=== PATIENT | male | born 1945 | race Caucasian/White ===

== ENCOUNTER 2018-05-21 05:50 | Emergency (ER) | payer MEDICARE, OTHER ==
[2018-05-21] MEDS ORDERED: Zofran 4 MG/2 ML VIAL IV ONE (06:05)
[2018-05-21] MEDS ORDERED: Sodium Chloride 0.9% 1000 ML 1,000 ML IV STA (06:05)
[2018-05-21] MEDS ORDERED: PROTONIX 40 MG IV IV ONE ×2 (06:05→06:27)
[2018-05-21] MEDS ORDERED: Pepcid 20 MG VIAL IV ONE ×2 (06:05→06:28)
[2018-05-21] MEDS ORDERED: BENADRYL 50 MG/ML IV ONE (06:05)
[2018-05-21] MEDS ORDERED: Sodium Chloride 0.9% 1000 ML 1,000 ML IV SCH (06:15)
--- NOTE | 2018-05-21 06:23 | ERPHSYRPT ---
- History of Present Illness Time Seen by Provider: 05/21/18 06:20 Historian: patient, family Exam Limitations: no limitations Patient Subjective Stated Complaint: per ems and pt's , pt has vomited up dark black for approx 1-2 hours. states pt has been feeling bad for last 3 weeks and has been increasingly tired recently Triage Nursing Assessment: pt alert and oriented. answers questions- slow to answer at times- states pt has poor memory and this is his normal. pt arrive per ambulance. [facility]. respirations nonlabored with lungs cta. abd soft and nontender wtih hyper bowel sounds. emesis dark black. none since arrival to er. Physician History: pt has vomited up dark black for approx 1-2 hours. states pt has been feeling bad for last 3 weeks and has been increasingly tired recently Timing/Duration: today Activities at Onset: none Quality: tightness Abdominal Pain Onset Location: epigastric Pain Radiation: no radiation Severity of Pain-Max: mild Severity of Pain-Current: mild Modifying Factors: Improves With: nothing Associated Symptoms: loss of appetite, nausea, vomiting (blood) Previous symptoms: different symptoms Allergies/Adverse Reactions: NSAIDS (Non-Steroidal Anti-Inflamma Allergy (Verified 05/21/18 06:15) Anaphylactic Reaction galantamine Adverse Reaction (Verified 05/21/18 06:15) Nausea Home Medications: Clonazepam 0.5 mg [Klonopin 0.5 MG] 0.5 mg PO BIDPRN PRN 05/21/18 [History ] Clopidogrel Bisulfate 75 mg [PLAVIX 75 MG Tablet] 75 mg PO BID 05/21/18 [ History] Donepezil HCl 10 mg [Aricept 10 MG] 10 mg PO DAILY 05/21/18 [History] Duloxetine HCl [Cymbalta] 60 mg PO DAILY 05/21/18 [History] Hydrocodone/APAP 10/325 mg [[place] 10/325 MG Tablet] 1 tab PO Q4H PRN PRN 05/21/18 [History] Isosorbide Mononitrate [Isosorbide Mononitrate ER] 120 mg PO DAILY 05/21/18 [ History] Memantine HCl 10 mg PO BID 05/21/18 [History] Metoclopramide HCl 5 mg [Reglan 5 MG] 5 mg PO ACHS 05/21/18 [History] Omeprazole 20 MG [Prilosec 20 mg] 20 mg PO BID 05/21/18 [History] PANTOPRAZOLE 40 mg Tablet [Protonix 40MG Tablet] 40 mg PO QAM 05/21/18 [ History] Quetiapine Fumarate 25 mg [Seroquel 25 MG] 25 mg PO BID 05/21/18 [History] Ranitidine HCl 300 mg PO HS 05/21/18 [History] Ranolazine 500 MG [Ranexa 500 MG] 500 mg PO BID 05/21/18 [History] Rosuvastatin Calcium [Crestor] 5 mg PO DAILY 05/21/18 [History] Hx Tetanus, Diphtheria Vaccination/Date Given: Yes Hx Influenza Vaccination/Date Given: No Hx Pneumococcal Vaccination/Date Given: No Immunizations Up to Date: Yes - Review of Systems Constitutional: Fatigue, Lethargy, Weakness, No Fever, No Chills Eyes: No Symptoms Ears, Nose, & Throat: No Symptoms Respiratory: No Cough, No Dyspnea Cardiac: Chest Pain, No Edema, No Syncope Abdominal/Gastrointestinal: Abdominal Pain, Nausea, Hematemesis, No Vomiting, No Diarrhea Genitourinary Symptoms: No Dysuria Musculoskeletal: No Back Pain, No Neck Pain Skin: No Rash Neurological: No Dizziness, No Focal Weakness, No Sensory Changes Psychological: No Symptoms Endocrine: No Symptoms All Other Systems: Reviewed and Negative - Past Medical History Neurological History: Dementia ENT History: No Pertinent History Cardiac History: Coronary Artery Disease Respiratory History: No Pertinent History Endocrine Medical History: No Pertinent History Musculoskeletal History: Arthritis GI Medical History: Esophageal Disorder, GERD - Past Surgical History Past Surgical History: Yes Cardiac: CABG Gastrointestinal: Appendectomy, Cholecystectomy Musculoskeletal: Orthopedic Surgery - Social History Smoking Status: Never smoker Exposure to second hand smoke: No Drug Use: none Patient Lives Alone: No - Nursing Vital Signs Nursing Vital Signs: Initial Vital Signs Temperature 99.8 F 05/21/18 05:56 Pulse Rate 93 H 05/21/18 05:56 Respiratory Rate 18 05/21/18 05:56 Blood Pressure 151/88 05/21/18 05:56 O2 Sat by Pulse Oximetry 96 05/21/18 05:56 Pain Scale Pain Intensity 0 - Physical Exam General Appearance: no apparent distress, alert Eye Exam: PERRL/EOMI, eyes nml inspection, pale conjunctivae Ears, Nose, Throat Exam: normal ENT inspection, pharynx normal, moist mucous membranes Neck Exam: normal inspection, non-tender, supple, full range of motion Respiratory Exam: normal breath sounds, lungs clear, No respiratory distress Cardiovascular Exam: regular rate/rhythm, normal heart sounds Gastrointestinal/Abdomen Exam: soft, No tenderness, No mass Back Exam: normal inspection, normal range of motion, No CVA tenderness, No vertebral tenderness Extremity Exam: normal inspection, normal range of motion, pelvis stable Neurologic Exam: alert, oriented x 3, cooperative, sensation nml, No motor deficits Skin Exam: normal color, warm, dry, pale Lymphatic Exam: No adenopathy SpO2 Interpretation: normal SpO2: 96 Oxygen Delivery: Room Air - Course Nursing assessment & vital signs reviewed: Yes EKG Interpreted by Me: Sinus Rhythm - Radiology Exams Chest X-ray Interpretation: Reviewed by me, Negative Ordered Tests: Active Orders 24 hr Category Date Time Status EKG-ER Only STAT Care 05/21/18 06:05 Active IV Insertion STAT Care 05/21/18 06:05 Active CHEST 1 VIEW (PORTABLE) Stat Exams 05/21/18 06:06 Taken CBC W DIFF Stat Lab 05/21/18 06:20 Completed CMP Stat Lab 05/21/18 06:20 Completed PROTIME WITH INR Stat Lab 05/21/18 06:20 Received TROPONIN Q3H Lab 05/21/18 06:20 Received TROPONIN Q3H Lab 05/21/18 09:15 Ordered TROPONIN Q3H Lab 05/21/18 12:15 Ordered TROPONIN Q3H Lab 05/21/18 15:15 Ordered TROPONIN Q3H Lab 05/21/18 18:15 Ordered Medication Summary Generic Name Dose Route Start Last Admin Trade Name Freq PRN Reason Stop Dose Admin Sodium Chloride 1,000 mls @ 999 mls/hr 05/21/18 06:05 05/21/18 06:40 Sodium Chloride 0.9% 1000 Ml IV 05/21/18 07:05 999 mls/hr .Q1H1M STA Administration Sodium Chloride 1,000 mls @ 100 mls/hr 05/21/18 06:15 Sodium Chloride 0.9% 1000 Ml IV 06/20/18 06:14 .Q10H POLI Discontinued Medications Generic Name Dose Route Start Last Admin Trade Name Fernando PRN Reason Stop Dose Admin Diphenhydramine HCl 25 mg 05/21/18 06:05 05/21/18 06:41 Benadryl 50 Mg/Ml IV 05/21/18 06:06 25 mg STAT ONE Administration Diphenhydramine HCl Confirm 05/21/18 06:27 Benadryl 50 Mg/Ml Administered 05/21/18 06:28 Dose 50 mg .ROUTE .STK-MED ONE Famotidine 20 mg 05/21/18 06:05 05/21/18 06:42 Pepcid 20 Mg Vial IV 05/21/18 06:06 20 mg STAT ONE Administration Famotidine Confirm 05/21/18 06:28 Pepcid 20 Mg Vial Administered 05/21/18 06:29 Dose 20 mg IV .STK-MED ONE Ondansetron HCl 4 mg 05/21/18 06:05 05/21/18 06:42 Zofran 4 Mg/2 Ml Vial IV 05/21/18 06:06 4 mg STAT ONE Administration Ondansetron HCl Confirm 05/21/18 06:27 Zofran 4 Mg/2 Ml Vial Administered 05/21/18 06:28 Dose 4 mg .ROUTE .STK-MED ONE Pantoprazole Sodium 40 mg 05/21/18 06:05 05/21/18 06:41 Protonix 40 Mg Iv IV 05/21/18 06:06 40 mg STAT ONE Administration Pantoprazole Sodium Confirm 05/21/18 06:27 Protonix 40 Mg Iv Administered 05/21/18 06:28 Dose 40 mg IV .STK-MED ONE Lab/Rad Data: Laboratory Result Diagrams 05/21/18 06:20 05/21/18 06:20 Laboratory Results 05/21/18 05/21/18 Range/Units 06:20 06:20 WBC 8.9 (4.0-10.5) K/mm3 RBC 3.65 L (4.1-5.6) M/mm3 Hgb 12.7 (12.5-18.0) gm/dl Hct 37.6 L (42-50) % MCV 103.0 H (78-100) fl MCH 34.7 H (26-32) pg MCHC 33.8 (32-36) g/dl RDW 13.5 (11.5-14.0) % Plt Count 223 (150-450) K/mm3 MPV 8.6 (6-9.5) fl Gran % 78.7 H (36.0-66.0) % Eos # (Auto) 0.01 (0-0.5) Absolute Lymphs (auto) 0.91 L (1.0-4.6) Absolute Monos (auto) 0.95 (0.0-1.3) Lymphocytes % 10.3 L (24.0-44.0) % Monocytes % 10.7 (0.0-12.0) % Eosinophils % 0.1 (0.00-5.0) % Basophils % 0.2 (0.0-0.4) % Absolute Granulocytes 6.96 H (1.4-6.9) Basophils # 0.02 (0-0.4) Sodium 144 (137-145) mmol/L Potassium 4.0 (3.5-5.1) mmol/L Chloride 107 (98-107) mmol/L Carbon Dioxide 27 (22-30) mmol/L Anion Gap 14.0 (5-15) MEQ/L BUN 29 H (9-20) mg/dL Creatinine 1.00 (0.66-1.25) mg/dL Estimated GFR > 60.0 ML/MIN Glucose 147 H (74-106) mg/dL Calcium 9.0 (8.4-10.2) mg/dL Total Bilirubin 0.50 (0.2-1.3) mg/dL AST 14 L (17-59) U/L ALT 12 (0-50) U/L Alkaline Phosphatase 60 (38-126) U/L Serum Total Protein 6.8 (6.3-8.2) g/dL Albumin 3.9 (3.5-5.0) g/dL - Progress Progress: improved Progress Note: 05/21/18 06:54 Patient hemoglobin is 12.7. Patient did not have any active hematemesis in the emergency room. Patient is hemodynamically stable. 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 Lawson. Patient's has opted for patient to be transferred to [facility]. in [place] Discussed with Dr.: Other (Dr Maxwell 7 am) Will see patient in: other ([facility], Dr Maxwell) Counseled pt/family regarding: lab results, diagnosis, need for follow-up, rad results - Departure Time of Disposition: 07:03 Departure Disposition: Transfer ([facility], Dr Maxwell accepting physician, via ALS ambulance) Clinical Impression: Upper GI bleed Condition: Stable Critical Care Time: Yes Critical Care Time(excluding separately billable procedures): 30-74 minutes Instructions: Gastrointestinal Bleeding (DC)
[2018-05-21] MEDS ORDERED: Zofran 4 MG/2 ML VIAL ONE (06:27)
[2018-05-21] MEDS ORDERED: BENADRYL 50 MG/ML ONE (06:27)
[2018-05-21] MEDS ORDERED: Sodium Chloride 0.9% 1000 ML 1,000 ML ONE ×2 (06:28→07:54)
[2018-05-21 06:29] LABS: BASOPHIL % 0.2 % (0.0-0.4); Basophil (Absolute #) 0.02 (0-0.4); Eosinophil % 0.1 % (0.00-5.0); Eosinophil (Absolute #) 0.01 (0-0.5); Granulocyte Absolute (ANC) 6.96 (1.4-6.9); Granulocytes % 78.7 % (36.0-66.0); Hematocrit 37.6 % (42-50); Hemoglobin 12.7 gm/dl (12.5-18.0); Lymphocyte (Absolute #) 0.91 (1.0-4.6); Lymphocytes % 10.3 % (24.0-44.0); Mean Corpuscular Hgb Concent. 33.8 g/dl (32-36); Mean Platelet Volume 8.6 fl (6-9.5); Monocyte (Absolute #) 0.95 (0.0-1.3); Monocytes % 10.7 % (0.0-12.0); Platelet Count 223 K/mm3 (150-450); Red Blood Count 3.65 M/mm3 (4.1-5.6); Red Cell Distribution Width 13.5 % (11.5-14.0); White Blood Count 8.9 K/mm3 (4.0-10.5)
[2018-05-21 06:40] LABS: Mean Corpuscular Hemoglobin 34.7 pg (26-32)
[2018-05-21 06:51] LABS: ALBUMIN 3.9 g/dL (3.5-5.0); ALKALINE PHOSPHATASE 60 U/L (38-126); BLOOD UREA NITROGEN 29 mg/dL (9-20); CHLORIDE 107 mmol/L (98-107); Carbon Dioxide 27 mmol/L (22-30); Glucose 147 mg/dL (74-106); INR 1.15 (0.8-3.0); SGOT/AST 14 U/L (17-59); SGPT/ALT 12 U/L (0-50); SODIUM 144 mmol/L (137-145); Total Protein 6.8 g/dL (6.3-8.2)
[2018-05-21 07:35] VITALS: BP 143/85; PULSE 90; O2SAT 98
--- NOTE | 2018-05-21 08:26 | XRAY ---
Indication: Chest pain and vomiting blood. Comparison: None Portable chest demonstrates left hilar postsurgical changes, sternotomy wires, and lower cervical fusion surgery. No focal infiltrate, consolidation, or large effusion. Heart is not enlarged for AP portable technique. Bony thorax intact. Impression: Nonacute chest with chronic features.
== END 2018-05-21 08:05 | disposition short-term general hospital (02) ==
LOC: ED 05:50
DX: K92.0 Hematemesis (principal); R10.13 Epigastric pain; Z79.01 Long term (current) use of anticoagulants; Z79.899 Other long term (current) drug therapy
CPT/HCPCS: 36000; 36415; 71045; 80053; 84484; 85025; 85610; 93005; 96360; 96374; 96375; 99285; J1200; J2405